=== PATIENT | male | born 1970 | race Caucasian/White ===

== ENCOUNTER 2020-02-07 03:39 | Emergency (ER) | payer SELFPAY ==
[~2020-02-07] VITALS: Ht 188 cm; Wt 93.9 kg
[2020-02-07 03:43] VITALS: BP 148/97
--- NOTE | 2020-02-07 03:43 | NUR ---
ED Nurse Note: PT BROUGHT IN BY [facility] IN CUSTODY FOR MEDICAL CLEARANCE. PT AAO X 4, AMBULATES WITH STEADY GAIT, VSS NO SS OF DISTRESS NOTED. PT DENIES PAIN, INJURY, OTHER MALADIES. PHARMACIST IN CHARGE AT BEDSIDE. AWAITING ERMD AT BEDSIDE.
[2020-02-07] MEDS ORDERED: VENTOLIN HFA18 GM INH (03:48)
[2020-02-07] MEDS ORDERED: ATORVASTATIN CA10 MG ORAL (03:48)
[2020-02-07] MEDS ORDERED: BIKTARVY 50-201 EACH PO (03:49)
--- NOTE | 2020-02-07 03:50 | NUR ---
ED Nurse Note: ERMD AT BEDSIDE
--- NOTE | 2020-02-07 04:00 | Emergency Room Report ---
History of Present Illness General Chief Complaint: Medical Clearance Source: Patient Present Illness HPI 49M PMHx HIV on Tam therapy, asthma brought in by [facility] for care home check. Patient denies any complaints at this time. States he has been compliant with all of his HIV medications Denies recent travel, sick contacts, antibiotic use, hospitalization, cough, hemoptysis, chest pain, shortness of breath, rash, photophobia, neck pain, headache or any symptoms. Patient is compliant with all of his HIV therapy. He states that his viral load is undetectable The patient's symptoms were gradual onset, severity was moderate, duration since 1 day. Quality: Denies pain Past medical history: HIV, asthma Past surgical history: Neck surgery, low back surgery Smoking: Denies Alcohol use: Occasional Drug use: Denies Review of systems: CONST: No fevers or chills, No night sweats PULMONARY: No productive cough, No shortness of breath CARDIAC: No chest pain, No palpitations GI: No vomiting, No diarrhea , No melena_or_BRBPR : No dysuria, No hematuria, No discharge NEURO: No new_focal_weakness_or_numbness, No confusion, No vision changes 14 point Review of Systems is otherwise negative except per HPI Physical Exam: GENERAL: Awake_alert_ nontoxic, no acute distress Spo2 98% on RA -normal EYES: Extraocular muscles are intact. Conjunctivae clear. Lids without swelling ENT: External nose and ear normal_in_appearance. Oropharynx clear. Head_atraumatic, Moist_oral_mucosa NECK: No JVD. No meningismus. No thyromegaly. Supple. Trachea midline RESP: Normal respiratory effort. Symmetric rise. No stridor. Clear_to_auscultation_No_rales_No_wheezes CARDIAC: Regular rate and regular rhytm. No_significant pedal edema. ABDOMEN: Soft. Nondistended. Nontender_No_rebound_or_guarding. MSK: Normal muscle tone, without rigidity. Extremities without asymmetric deformity or swelling. SKIN: Warm and dry. No visible cyanosis or pallor. No petechiae NEUROLOGIC: Alert, oriented x3. Motor_and_sensation_grossly_intact. No truncal ataxia. Gait_normal Psych: Normal mood and affect, normal judgment and insight - COORDINATION OF CARE Case was discussed with: Patient Medical Decision Making/Plan: Patient is afebrile with stable vital signs. No nuchal rigidity or altered mental status. No rash. No increased work of breathing, wheezing, or rhonchi. Patient will be cleared for booking. Patient is medically clear. Strict return ER precautions discussed for any new, persistent, or worsening symptoms. 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 Nursing Documentation-PM Past Medical History: No History, Except For Hx Asthma: Yes Physical Exam Vital Signs Date Time Temp Pulse Resp B/P (MAP) Pulse Ox O2 Delivery O2 Flow Rate FiO2 02/07/20 03:43 98.2 102 12 148/97 (114) 98 Room Air Sp02 EP Interpretation: reviewed, normal Medical Decision Making Diagnostic Impression: Primary Impression: Medical clearance for incarceration Additional Impressions: HIV (human immunodeficiency virus infection) Asthma Last Vital Signs Date Time Temp Pulse Resp B/P (MAP) Pulse Ox O2 Delivery O2 Flow Rate FiO2 02/07/20 03:43 98.2 102 12 148/97 (114) 98 Room Air Disposition: [facility] ENF[facility]CEMENT IN CUST Admit Decision Time: 03:59 Condition: Stable Patient Instructions: HIV Infection and AIDS Additional Instructions: Medically clear for incarceration Instructions for patient/assembler metal furniture: Follow up with your physician in 1-2 days. Follow-up with your doctor sooner if your condition requires a more timely clinical reevaluation. Return to the emergency department immediately if you feel that your condition is worsening or if you have any new or concerning symptoms. Review your discharge instructions and take any prescriptions given as instructed. [facility] PROVIDES FREE OR LOW-COST HEALTH SERVICES TO PEOPLE WHO CAN SHOW PROOF THAT THEY LIVE IN [facility]. TO FIND MORE CLINICS PARTNERED WITH [facility] TO PROVIDE SERVICE, PLEASE CALL . Larissa Abad D.O. Feb 07, 2020 04:00
[2020-02-07 04:03] VITALS: BP 132/86
--- NOTE | 2020-02-07 04:03 | NUR ---
ER DISCHARGE NOTE: Patient is cleared to be discharged in [employer] custody per ERMD, pt is aox4, 99% on room air, with stable vital signs. pt was given dc instructions, pt was able to verbalize understanding, pt id band removed. pt is able to ambulate with steady gait. pt took all belongings.
== END 2020-02-07 04:03 ==
LOC: EMR 03:53
DX: B20 Human immunodeficiency virus [HIV] disease (principal); J45.909 Unspecified asthma, uncomplicated
CPT/HCPCS: 99281